=== PATIENT | female | born 1975 | race Caucasian/White ===

== ENCOUNTER 2018-09-19 00:34 | Day surgery (SDC) | payer OTHER ==
[2018-09-19] VITALS (9 sets, daily range): BP systolic 88–108; BP diastolic 40–72
[~2018-09-19] VITALS: Ht 167.6 cm; Wt 59.9 kg
[~2018-09-19 00:34] MED LIST: AMOX-559 PO; FEXO-67 PO; FLUC150T40 PO; FLUT16SP20 NS; IBUP200C74 PO; IBUP800T37 PO; LOOVRAL PO; LOR5/325 PO; LYSINE; MULT1CAP59 PO; ONDA4TAB PO
[2018-09-19] MEDS ORDERED: GLYCOPYRROLATE 0.2MG/ML 1 ML INJ IVP ONE (06:30)
[2018-09-19] MEDS ORDERED: NORMOSOL R SOLN(*) 1000 ML BAG 1,000 ML IV PRN (07:00)
[2018-09-19] MEDS ORDERED: LIDOCAINE/SOD BICARB 8.4% SYR ID ONE (07:00)
[2018-09-19] MEDS ORDERED: LIDOCAINE MPF 1% 5 ML VIAL ONE (07:15)
[2018-09-19] MEDS ORDERED: PROPOFOL EMUL(*) 10MG/ML 20 ML 60 ML ONE (07:15)
[2018-09-19] MEDS ORDERED: ONDANSETRON 4 MG/2 ML VIAL IVP ONE (07:15)
--- NOTE | 2018-09-19 08:44 | Short(Outpt) Discharge Summary ---
Discharge Summary Reason for Hosp/Final Diag: (1) GI bleed Hospital Course & Plan: 42 yo f presented for egd/colonoscopy. she tolerated the procedure well and there were no complications. path pending. she will be discharged home when criteria met. Discharge Instructions Home Meds Reported Medications Multivitamin (MULTIVITAMINS) 1 Each Capsule, 1 EACH PO, CAPSULE 09/08/18 Diet: Regular Activity: As Tolerated Special Instructions: we will call you in 10 days with biopsy results. ISAURO SOLORIO Sep 19, 2018 08:44
== END 2018-09-19 10:23 | disposition left against medical advice (07) ==
LOC: OR 00:34
PROVIDERS: ATTEND Surgery
DX: K29.70 Gastritis, unspecified, without bleeding (principal)
CPT/HCPCS: 00813; 43239; 45380; 81025; 87077; 88305; 88344; J2001; J2405; J2704; J3490